=== PATIENT | female | born 1990 | race Caucasian/White ===

== ENCOUNTER 2022-04-13 21:40 | Inpatient (IN) | payer OTHER ==
[~2022-04-13] VITALS: Ht 157.5 cm; Wt 69.4 kg
[2022-04-13] MEDS ORDERED: NALBUPHINE HCL 10 MG/ML AMP IM PRN (22:15)
[2022-04-13] MEDS ORDERED: LR 1,000 ML IV ONE (22:15)
[2022-04-13] MEDS ORDERED: NALBUPHINE HCL 10 MG/ML AMP IVP PRN (22:15)
[2022-04-13] MEDS: LR 1,000 ML IV SCH (22:31)
[2022-04-13] MEDS ORDERED: LIGHT MINERAL OIL 10 ML VIAL MC ONE (22:34)
[2022-04-13] MEDS ORDERED: LIDOCAINE PF 1% 30ML(POUR BTL) INJ ONE (22:34)
[2022-04-13] MEDS ORDERED: MORPHINE SULFATE 10 MG/ML VIAL IVP PRN (23:00)
[2022-04-13 23:21] LABS: BASOPHILS % (AUTO) 0.2 % (0.0-2.0); HEMATOCRIT 34.2 % (36-48); HEMOGLOBIN 11.1 g/dL (12.0-16.0); LYMPHOCYTES # (AUTO) 0.6 K/uL (1.0-5.5); LYMPHOCYTES % (AUTO) 3.1 % (20.5-51.5); MEAN CORPUSCULAR HEMOGLOBIN 26 pg (27-31); MEAN CORPUSCULAR HGB CONC 32 % (32-36); MEAN CORPUSCULAR VOLUME 81 fL (79.0-98.0); MONOCYTES # (AUTO) 0.9 K/uL (0.0-1.0); MONOCYTES % (AUTO) 4.7 % (1.7-9.3); NEUTROPHILS # (AUTO) 17.1 K/uL (1.8-7.7); PLATELET COUNT (AUTO) 196 K/uL (130-430); RED BLOOD CELL COUNT(AUTO) 4.21 MIL/uL (4.2-6.2); WHITE BLOOD COUNT (AUTO) 18.5 K/uL (4.8-10.8)
[2022-04-13] MEDS ORDERED: fentaNYL CITRATE/PF 100 MCG/2 ML AMP ONE (23:36)
[2022-04-13] MEDS ORDERED: ROPIVACAINE HCL/PF 0.2% 200 ML ONE (23:36)
[2022-04-14] MEDS ORDERED: FENT2mCg/mL-ROPIVA0.2%/NS EPID 200 ML EP SCH (00:15)
[2022-04-14] MEDS ORDERED: LR 500 ML IV ONE (00:15)
[2022-04-14] MEDS: LR 1,000 ML IV SCH (04:33)
[2022-04-14 04:52] VITALS: BP_SYST 134
[2022-04-14] MEDS ORDERED: OXYTOCIN/0.9 % SODIUM CHLORIDE 1,000 ML IV SCH (08:45)
[2022-04-14] MEDS ORDERED: METOCLOPRAMIDE HCL 10 MG/2 ML VIAL IVP PRN (14:30)
[2022-04-14] MEDS ORDERED: WATER FOR IRRIGATION,STERILE 1,000 ML IRRIG.SOLN IR ONE (14:30)
[2022-04-14] MEDS ORDERED: CEFAZOLIN 2 GM IVPB PREMIX 50 ML IV ONE (14:30)
[2022-04-14] MEDS ORDERED: DIPHENHYDRAMINE INJ 50 MG/ML VIAL IVP PRN (14:30)
[2022-04-14] MEDS ORDERED: MORPHINE SULFATE 10MG/10ML PF AMP EP ONE (14:30)
[2022-04-14] MEDS ORDERED: NALOXONE HCL 0.4 MG/ML AMP (NARCAN) IVP PRN ×2 (14:30)
[2022-04-14] MEDS ORDERED: NALBUPHINE HCL 10 MG/ML AMP IVP PRN (14:30)
[2022-04-14] MEDS ORDERED: KETOROLAC TROMETHAMINE 60 MG/2 ML VIAL IM PRN (14:30)
[2022-04-14] MEDS ORDERED: NS 1000 ML IV.SOLN IV ONE (14:30)
[2022-04-14] MEDS ORDERED: BUPIVACAINE /PF 0.5% 30 ML VIAL ONE (14:30)
[2022-04-14] MEDS ORDERED: MORPHINE SULFATE 10MG/10ML PF AMP ONE (14:30)
[2022-04-14] MEDS ORDERED: NS IRRIG SOLN 1000 ML IR ONE (14:30)
[2022-04-14] MEDS ORDERED: ONDANSETRON HCL 4 MG/2 ML VIAL ONE (14:30)
[2022-04-14] MEDS ORDERED: fentaNYL CITRATE/PF 100 MCG/2 ML AMP IVP PRN ×2 (14:30)
[2022-04-14] MEDS ORDERED: ONDANSETRON HCL 4 MG/2 ML VIAL IVP PRN ×2 (14:30)
[2022-04-14] MEDS ORDERED: LANOLIN 7 GM OINT. TP PRN (15:45)
[2022-04-14] MEDS ORDERED: TEMAZEPAM 15 MG CAPSULE PO PRN (15:45)
[2022-04-14] MEDS ORDERED: OXYTOCIN/0.9 % SODIUM CHLORIDE 1,000 ML IV ONE (15:45)
[2022-04-14] MEDS ORDERED: MEASLES,MUMPS&RUBELLA VACC/PF 12500 UNIT/0.5 ML VIAL SUBQ PRN (15:45)
[2022-04-14] MEDS ORDERED: RHO(D) IMMUNE GLOBULIN/MALTOSE 1500 UNITS/1.3 ML (WINHRO) IM PRN (15:45)
[2022-04-14] MEDS ORDERED: BISACODYL 10 MG/SUPPOSITORY RC PRN (15:45)
[2022-04-14] MEDS ORDERED: LR 1,000 ML IV SCH (15:45)
[2022-04-14] MEDS ORDERED: HYDROcodone/ACETAMIN 5-325 MG TAB (NORCO/ VICODIN) PO PRN (15:45)
[2022-04-14] MEDS ORDERED: ANUSOL 1 EA SUPP.RECT (PREPARATION H) RC PRN (15:45)
[2022-04-14] MEDS ORDERED: DIPH-TET-PERTUS Vaccine 0.5 ML VIAL (ADACEL) I.M. PRN (15:45)
[2022-04-14] MEDS ORDERED: OXYCODONE/ACETAMINOPHEN 5-325 TABLET PO PRN (15:45)
[2022-04-14 20:00] VITALS: BP_SYST 108
[2022-04-14] MEDS ORDERED: SENNOSIDES/DOCUSATE SODIUM 1 TAB TABLET(SENOKOT-S) PO SCH (21:00)
[2022-04-15] MEDS: LR 1,000 ML IV SCH (03:01)
[2022-04-15 07:40] LABS: BASOPHILS % (AUTO) 0.1 % (0.0-2.0); HEMATOCRIT 27.9 % (36-48); HEMOGLOBIN 9.1 g/dL (12.0-16.0); LYMPHOCYTES # (AUTO) 1.1 K/uL (1.0-5.5); LYMPHOCYTES % (AUTO) 5.3 % (20.5-51.5); MEAN CORPUSCULAR HEMOGLOBIN 27 pg (27-31); MEAN CORPUSCULAR HGB CONC 33 % (32-36); MEAN CORPUSCULAR VOLUME 81 fL (79.0-98.0); MONOCYTES # (AUTO) 1.2 K/uL (0.0-1.0); MONOCYTES % (AUTO) 5.9 % (1.7-9.3); NEUTROPHILS # (AUTO) 18.1 K/uL (1.8-7.7); NEUTROPHILS % (AUTO) 88.7 % (40.0-70.0); PLATELET COUNT (AUTO) 166 K/uL (130-430); RED BLOOD CELL COUNT(AUTO) 3.44 MIL/uL (4.2-6.2); RED CELL DISTRIBUTION WIDTH 15.1 % (9.0-15.0); WHITE BLOOD COUNT (AUTO) 20.5 K/uL (4.8-10.8)
[2022-04-15] MEDS: SIMETHICONE 80 MG TAB.CHEW PO PRN ×2 (09:18→15:34)
[2022-04-15] MEDS: DOCUSATE SODIUM 100 MG CAPSULE PO SCH (09:18)
[2022-04-15] MEDS: IBUPROFEN 600 MG TABLET PO SCH ×3 (09:19→23:36)
[2022-04-15] MEDS ORDERED: SERTRALINE HCL 50 MG TABLET PO ONE ×2 (17:30→17:45)
[2022-04-15] MEDS ORDERED: SERTRALINE HCL 50 MG TABLET PO SCH ×2 (17:45)
[2022-04-15] MEDS: OXYCODONE/ACETAMINOPHEN 5-325 TABLET PO PRN (20:16)
[2022-04-16] MEDS: SIMETHICONE 80 MG TAB.CHEW PO PRN (00:55)
[2022-04-16 01:38] LABS: BILIRUBIN,URINE NEGATIVE (NEGATIVE); BLOOD, URINE 3+ (NEGATIVE); CLARITY/URINE CLEAR (CLEAR); COLOR,URINE ORANGE (YELLOW); GLUCOSE,URINE NEGATIVE (NEGATIVE); KETONES,URINE NEGATIVE (NEGATIVE); LEUKOCYTE ESTERASE ,URINE 2+ (NEGATIVE); NITRITE, URINE NEGATIVE (NEGATIVE); PROTEIN URINE 1+ (NEGATIVE); UROBILINOGEN,URINE 0.2 (0.2-1.0)
[2022-04-16 03:05] LABS: BACTERIA,URINE None Seen /HPF (None Seen); RBC,URINE >100 /HPF (0-3); WBC,URINE 20-50 /HPF (0-3)
[2022-04-16 03:07] LABS: MUCUS,URINE None Seen /LPF (None Seen)
[2022-04-16] MEDS: OXYCODONE/ACETAMINOPHEN 5-325 TABLET PO PRN ×2 (03:33→10:35)
[2022-04-16] MEDS: IBUPROFEN 600 MG TABLET PO SCH ×2 (06:52→12:11)
[2022-04-16] MEDS: DOCUSATE SODIUM 100 MG CAPSULE PO SCH (09:00)
[2022-04-16] MEDS ORDERED: SERTRALINE HCL 50 MG TABLET PO SCH (09:00)
== END 2022-04-16 15:05 | disposition home or self-care (01) | DRG 788 ==
LOC: SPU 21:40 → OBSVTOIN 21:40
PROVIDERS: ADMIT Obstetrics & Gynecology; ATTEND Obstetrics & Gynecology
PROC: 10D00Z1 Extraction of Products of Conception, Low, Open Approach (ICD-10-PCS; principal; 2022-04-12)
DX: O62.1 Secondary uterine inertia (principal); Z20.822 Contact with and (suspected) exposure to COVID-19; O66.5 Attempted application of vacuum extractor and forceps; Z37.0 Single live birth
CPT/HCPCS: 36415; 81000; 85025; 86592; 86886; 86900; 86901; 87536; 94760; J0690; J1885; J2001; J2270; J2274; J2405; J2590; J3010; J3490; J7030